=== PATIENT | female | born 1980 | race Caucasian/White ===

== ENCOUNTER → 2017-04-26 | Emergency (ER) | payer OTHER ==
[~2017-04-26] VITALS: Ht 152.4 cm; Wt 43.1 kg
[~2017-04-26] MED LIST: ADVIL ALLERGY S1 TAB; AMOX1TAB12 PO; CLARITIN-D 121 EACH PO; FLONASE16 GM; IBUPROFEN800 MG PO; IMODIUM A-D2 MG PO; INTESTINEX1 CAP PO; LEVSIN0.125 MG PO; PEPCID40 MG PO; PHENERGAN25 MG PO; PROTONIX40 M1 PO; PROTONIX40 MG PO; TUSSI PRES-B L120 M1 PO; VISTARIL50 MG PO; ZANTAC300 MG PO; ZOFRAN4 MG PO
== END | disposition home or self-care (01) ==
LOC: ER 20:28
DX: J32.8 Other chronic sinusitis (principal)

== ENCOUNTER 2017-06-30 18:06 | Emergency (ER) | payer OTHER ==
[~2017-06-30] VITALS: Ht 152.4 cm; Wt 43.1 kg
== END 2017-06-30 20:43 | disposition home or self-care (01) ==
LOC: ER 18:06
DX: K21.9 Gastro-esophageal reflux disease without esophagitis (principal)

== ENCOUNTER → 2017-08-31 | Emergency (ER) | payer OTHER ==
[~2017-08-31] VITALS: Ht 121.9 cm; Wt 44.0 kg
[~2017-08-31] MED LIST changes: +ZOFRAN ODT4 MG PO
== END | disposition home or self-care (01) ==
LOC: ER 19:36
DX: O21.0 Mild hyperemesis gravidarum (principal); O26.891 Other specified pregnancy related conditions, first trimester; K29.70 Gastritis, unspecified, without bleeding; Z34.01 Encounter for supervision of normal first pregnancy, first trimester

== ENCOUNTER 2017-10-16 21:24 | Emergency (ER) | payer OTHER ==
[~2017-10-16] VITALS: Ht 149.9 cm; Wt 47.2 kg
[2017-10-16] MEDS ORDERED: FA-80.8 M1 (21:45)
== END 2017-10-17 02:15 | disposition home or self-care (01) ==
LOC: ER 21:24
DX: O26.891 Other specified pregnancy related conditions, first trimester (principal); R10.2 Pelvic and perineal pain; Z34.81 Encounter for supervision of other normal pregnancy, first trimester

== ENCOUNTER 2017-11-24 18:38 | Emergency (ER) | payer OTHER ==
[~2017-11-24] VITALS: Ht 149.9 cm; Wt 48.1 kg
[~2017-11-24 18:38] MED LIST changes: +FA-80.8 M1
== END 2017-11-24 22:06 | disposition home or self-care (01) ==
LOC: ER 18:38
DX: B34.9 Viral infection, unspecified (principal); J30.89 Other allergic rhinitis

== ENCOUNTER 2018-01-27 21:22 | Outpatient (CLI) | payer OTHER ==
[2018-01-27] MEDS ORDERED: PRENATAL TABLE1 EAC1 PO (21:42)
== END 2018-01-28 12:00 | disposition home or self-care (01) ==
LOC: OBS/DEL 21:22
DX: O99.343 Other mental disorders complicating pregnancy, third trimester (principal); O60.03 Preterm labor without delivery, third trimester; F06.4 Anxiety disorder due to known physiological condition; Z34.03 Encounter for supervision of normal first pregnancy, third trimester

== ENCOUNTER 2018-04-05 10:30 | Inpatient (IN) | payer OTHER ==
[~2018-04-05] VITALS: Ht 149.9 cm; Wt 61.2 kg
[~2018-04-05 10:30] MED LIST changes: +PRENATAL TABLE1 EAC1 PO
[2018-04-09] MEDS ORDERED: FERREX 150 FOR1 EAC1 PO (07:38)
== END 2018-04-12 11:01 | disposition home or self-care (01) | DRG 785 ==
LOC: LDR 10:30 → OB/GYN 04-09 05:35 → O/R 04-09 05:35 → LDR 04-09 09:00 → OB/GYN 04-09 14:46
PROVIDERS: ADMIT Specialist
PROC: 0UB70ZZ Excision of Bilateral Fallopian Tubes, Open Approach (ICD-10-PCS; 2018-04-09)
PROC: 4A1HXCZ Monitoring of Products of Conception, Cardiac Rate, External Approach (ICD-10-PCS; 2018-04-09)
PROC: 4A033R1 Measurement of Arterial Saturation, Peripheral, Percutaneous Approach (ICD-10-PCS; 2018-04-09)
PROC: 10D00Z1 Extraction of Products of Conception, Low, Open Approach (ICD-10-PCS; principal; 2018-04-09 09:00)
DX: O32.1XX0 Maternal care for breech presentation, not applicable or unspecified (principal); O34.211 Maternal care for low transverse scar from previous cesarean delivery; O75.82 Onset (spontaneous) of labor after 37 completed weeks of gestation but before 39 completed weeks gestation, with delivery by (planned) cesarean section; Z3A.39 39 weeks gestation of pregnancy; Z37.0 Single live birth; Z30.2 Encounter for sterilization

== ENCOUNTER 2022-04-16 23:35 | Emergency (ER) | payer OTHER ==
[~2022-04-16] VITALS: Ht 152.4 cm; Wt 47.6 kg
[~2022-04-16 23:35] MED LIST changes: +FERREX 150 FOR1 EAC1 PO; +[UNRECOGNIZED DRUG - OTHER]
[2022-04-17] MEDS ORDERED: ZITHROMAX TRI-500 MG PO (02:30)
[2022-04-17] MEDS ORDERED: TUSNEL LIQUID178 ML PO (02:30)
== END 2022-04-17 02:36 | disposition home or self-care (01) ==
LOC: ER 23:35
DX: J00 Acute nasopharyngitis [common cold] (principal); Z20.822 Contact with and (suspected) exposure to COVID-19

== ENCOUNTER 2022-07-22 18:16 | Emergency (ER) | payer OTHER ==
[~2022-07-22] VITALS: Ht 157.5 cm; Wt 47.6 kg
[~2022-07-22 18:16] MED LIST changes: +TUSNEL LIQUID178 ML PO; +ZITHROMAX TRI-500 MG PO
== END 2022-07-22 20:47 | disposition home or self-care (01) ==
LOC: ER 18:16
DX: R53.81 Other malaise (principal); J00 Acute nasopharyngitis [common cold]; Z20.822 Contact with and (suspected) exposure to COVID-19

== ENCOUNTER → 2024-08-26 | Emergency (ER) | payer OTHER ==
[~2024-08-26] VITALS: Ht 152.4 cm; Wt 46.7 kg
== END | disposition left against medical advice (07) ==
LOC: ER 22:29
DX: Z53.21 Procedure and treatment not carried out due to patient leaving prior to being seen by health care provider (principal)